=== PATIENT | female | born 1960 | race Caucasian/White ===

== ENCOUNTER 2020-01-05 05:49 | Inpatient (IN) | payer OTHER ==
[2020-01-05] VITALS (19 sets, daily range): BP systolic 110–146; BP diastolic 60–81
[~2020-01-05] VITALS: Ht 157.5 cm; Wt 91.7 kg
[2020-01-05] MEDS ORDERED: LYRICA150 MG PO (06:03)
[2020-01-05] MEDS ORDERED: PHENERGAN 25 MG25 MG PO (06:04)
[2020-01-05] MEDS ORDERED: HYDROCHLOROTHIA25 M2 PO (06:05)
[2020-01-05] MEDS ORDERED: LEVO-T50 MCG PO (06:05)
[2020-01-05] MEDS ORDERED: METFORMIN HCL500 M3 PO (06:05)
[2020-01-05] MEDS ORDERED: DULOXETINE HCL60 MG PO (06:06)
[2020-01-05 06:15] LABS: ABSOLUTE BASOPHILS 0.1 thou/uL (0.0-0.2); ABSOLUTE EOSINOPHILS 0.2 thou/uL (0.0-0.7); ABSOLUTE LYMPHOCYTES 2.2 thou/uL (0.8-5.3); ABSOLUTE MONOCYTES 0.5 thou/uL (0.0-1.2); ABSOLUTE NEUTROPHILS 2.7 thou/uL (1.6-8.1); BASOPHILS 2.1 %; HEMATOCRIT 41.8 % (37.0-47.0); HEMOGLOBIN 15.1 gm/dL (12.0-15.0); LYMPHOCYTES 39.1 %; MCH 32.6 pg (26.0-34.0); MCV 90.4 fL (80.0-100.0); MONOCYTES 8.2 %; MPV 9.2 fl. (7.2-11.1); NUCLEATED RBCS 0 /100WBC; PLATELET COUNT* 206 thou/uL (150-400); POLYS 46.6 %; RBC 4.63 mil/uL (4.20-5.00); RDW-CV 13.4 % (10.5-14.5); WBC 5.7 thou/uL (4.0-11.0)
[2020-01-05 06:21] LABS: CALCIUM 8.1 mg/dL (8.5-10.1); CREATININE 0.9 mg/dL (0.6-1.3)
[2020-01-05 06:24] LABS: POTASSIUM 2.9 mmol/L (3.5-5.1)
[2020-01-05 06:34] LABS: ALBUMIN 3.4 g/dL (3.4-5.0); MAGNESIUM 1.8 mg/dL (1.8-2.4); PROTIME 10.4 Seconds (9.20-11.50); TOTAL BILIRUBIN 0.5 mg/dL (<0.1-1.0); TOTAL PROTEIN 6.9 g/dL (6.4-8.2)
[2020-01-05 08:10] LABS: URINE BILIRUBIN NEGATIVE (Negative); URINE BLOOD NEGATIVE (Negative); URINE CLARITY CLEAR; URINE COLOR YELLOW; URINE GLUCOSE-RANDOM NEGATIVE (Negative); URINE KETONES NEGATIVE (Negative); URINE LEUKOCYTES-REFLEX NEGATIVE (Negative); URINE NITRITE-REFLEX NEGATIVE (Negative); URINE PROTEIN NEGATIVE (Negative); URINE SPECIFIC GRAVITY >= 1.030 (1.005-1.030); URINE UROBILINOGEN 0.2 E.U./dl (0.2-1.0)
[2020-01-05 10:06] LABS: CHOLESTEROL 267 mg/dL (<200)
[2020-01-05 10:25] LABS: HDL CHOLESTEROL 42 mg/dL (>40); LDL CHOLESTEROL 194 mg/dL (<100); TC:HDL 6.4 Ratio (Not establshd); TRIGLYCERIDE 159 mg/dL (<150); VLDL 32 mg/dL (<40)
[2020-01-05 10:28] LABS: SERUM ASSESSMENT Clear
--- NOTE | 2020-01-05 10:46 | NUR ---
COMMUNICATION NOTE: FOLLOW UP CALL WITH ROSE MARINO NP, REPORTED PT IS STATING HER CHEST PAIN/TIGHTNESS IS REDUCED TO A 1 OF 10, UNDERSTANDING VERBALIZED
--- NOTE | 2020-01-05 13:18 | EKG ---
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 : 1960 Requested By: Bridget Santos Order Number: [id number] MD: Graham Melgar Measurements Intervals [place] Rate: 67 P: 6 PA: 179 QRS: -34 QRSD: 82 T: 29 QT: 491 QTc: 519 Interpretive Statements Sinus rhythm Inferior infarct, old Consider anterior infarct Prolonged QT interval No previous ECG available for comparison Electronically Signed On 01-05-2020 13:18:27 CDT by Graham Melgar [email or web address] <ELECTRONICALLY SIGNED> By: Graham Melgar MD, [facility] 01/05/20 1318 0555 0555 Graham Melgar MD, [facility] /EPI
--- NOTE | 2020-01-05 16:16 | 2DMMODE ---
[place] [address] 2 D/M-MODE ECHOCARDIOGRAM Name: LUCIANA RICHMOND Room: [address] ADM IN M.R.#: [id number] Admission: 01/05/20 Attend Phys: Graham Mlegar, Discharge: Date of : 60 Date of Service: 01/05/20 1615 Report #: [id number] THIS REPORT FOR: cc: Physician not on staff Physician not on staff Graham Melgar MD [facility] ~ APPROVED REPORT Study performed: 01/05/2020 13:52:57 EXAM: Comprehensive 2D, Doppler, and color-flow Echocardiogram Patient Location: In-Patient Status: routine BSA: 1.88 HR: 70 bpm BP: 109/63 mmHg Rhythm: NSR Other Information Study Quality: Good Indications Murmur 2D Dimensions IVSd: 11.10 (7-11mm) LVOT Diam: 21.85 (18-24mm) LVDd: 42.31 mm PWd: 9.79 (7-11mm) Ascending Ao: 31.52 (22-36mm) LVDs: 24.94 (25-40mm) Aortic Root: 29.84 mm Volumes Left Atrial Volume (Systole) LA ESV Index: 17.00 mL/m2 Aortic Valve AoV Peak Shane.: 1.43 m/s AO Peak Gr.: 8.18 mmHg LVOT Max P.50 mmHg AO Mean Gr.: 4.58 mmHg LVOT Mean P.27 mmHg LVOT Max V: 1.37 m/s AO V2 VTI: 27.16 cm LVOT Mean V: 0.81 m/s JR (VTI): 3.84 cm2 LVOT V1 VTI: 27.79 [place] [address] 2 D/M-MODE ECHOCARDIOGRAM Name: LUCIANA RICHMOND Room: [address] IN M.R.#: [id number] Admission: 01/05/20 Attend Phys: Graham Melgar, Discharge: Date of : 60 Date of Service: 01/05/20 1615 Report #: [id number] Mitral Valve E/A Ratio: 0.87 MV Decel. Time: 219.63 ms MV E Max Shane.: 0.80 m/s MV PHT: 63.69 ms MVA (PHT): 3.45 cm2 TDI E/Lateral E': 11.43 E/Medial E': 11.43 Medial E' Shane.: 0.07 m/s Lateral E' Shane.: 0.07 m/s Pulmonary Valve PV Peak Shane.: 1.03 m/s PV Peak Gr.: 4.25 mmHg Left Ventricle The left ventricle is normal size. There is normal LV segmental wall motion. There is normal left ventricular wall thickness. Left ventricular systolic function is normal. LVEF is 55-60%. Transmitral Doppler flow pattern suggests impaired LV relaxation. Right Ventricle The right ventricle is normal size. The right ventricular systolic function is normal. Atria The left atrium size is normal. The right atrium size is normal. Aortic Valve The aortic valve is normal in structure. No aortic regurgitation is present. There is no aortic valvular stenosis. Mitral Valve The mitral valve is normal in structure. Trace mitral regurgitation. No evidence of mitral valve stenosis. Tricuspid Valve The tricuspid valve is normal in structure. Trace tricuspid regurgitation. Unable to assess PA pressure. Pulmonic Valve The pulmonary valve is normal in structure. There is no pulmonic valvular regurgitation[place] [address] 2 D/M-MODE ECHOCARDIOGRAM Name: LUCIANA RICHMOND Room: [address] IN .R.#: [id number] Admission: 01/05/20 Attend Phys: Graham Melgar, Discharge: Date of : 60 Date of Service: 01/05/20 1615 Report #: [id number] The aortic root is normal in size. IVC is normal in size and collapses >50% with inspiration. Pericardium There is no pericardial effusion. <Conclusion> The left ventricle is normal size. There is normal left ventricular wall thickness. Left ventricular systolic function is normal. LVEF is 55-60%. Transmitral Doppler flow pattern suggests impaired LV relaxation. Trace mitral regurgitation. Trace tricuspid regurgitation. IVC is normal in size and collapses >50% with inspiration. <ELECTRONICALLY SIGNED> By: Graham Melgar MD, FACC 01/05/20 1615 1615 1615 Graham Melgar MD, FACC /INF
--- NOTE | 2020-01-05 18:49 | NUR ---
PT ARRIVED ON THE UNIT AROUND 1450 POST CATH. A&OX4, SR W/ PVCS ON TELE, ROOM AIR, IMMOBILIZED UNTIL 172, STAND BY ASSIST TO BATHROOM, MINOR SANGUINEOUS DRAINAGE, DRESSING CHANGED, ADMISSION COMPLETED, HOURLY ROUNDING PERFORMED, POSSESSIONS AND CALL LIGHT WITHIN REACH
[2020-01-06] VITALS: BP 134/86
[2020-01-06 04:00] VITALS: BP 138/95
[2020-01-06 05:11] LABS: CALCIUM 7.9 mg/dL (8.5-10.1); CREATININE 0.9 mg/dL (0.6-1.3); POTASSIUM 3.7 mmol/L (3.5-5.1)
[2020-01-06 05:19] LABS: ABSOLUTE BASOPHILS 0.1 thou/uL (0.0-0.2); ABSOLUTE EOSINOPHILS 0.3 thou/uL (0.0-0.7); ABSOLUTE LYMPHOCYTES 2.4 thou/uL (0.8-5.3); ABSOLUTE MONOCYTES 0.5 thou/uL (0.0-1.2); ABSOLUTE NEUTROPHILS 2.9 thou/uL (1.6-8.1); BASOPHILS 1.2 %; EOSINOPHILS 4.6 %; HEMATOCRIT 43.6 % (37.0-47.0); HEMOGLOBIN 15.4 gm/dL (12.0-15.0); LYMPHOCYTES 38.7 %; MCH 32.2 pg (26.0-34.0); MCHC 35.3 g/dL (28.0-37.0); MCV 91.3 fL (80.0-100.0); MONOCYTES 8.8 %; MPV 9.7 fl. (7.2-11.1); NUCLEATED RBCS 0 /100WBC; PLATELET COUNT* 206 thou/uL (150-400); POLYS 46.7 %; RBC 4.78 mil/uL (4.20-5.00); RDW-CV 13.8 % (10.5-14.5); WBC 6.2 thou/uL (4.0-11.0)
--- NOTE | 2020-01-06 05:53 | NUR ---
PATIENT PROGRESSING TOWARDS GOALS: PATIENT DENIES CHEST PAIN AND DISCOMFORT. PATIENT REMAINS ON ROOM AIR. RIGHT GROIN SITE DRESSING REMAINS C/D/I. SLIGHT BRUISING NOTED ON AROUND THE BORDERS OF THE DRESSING, HOWEVER, SITE SOFT. PATIENT UP INDEPENDENTLY WITHOUT DIZZINESS OR LIGHTHEADEDNESS. CALL LIGHT WITHIN REACH
[2020-01-06 08:00] VITALS: BP 135/81
--- NOTE | 2020-01-06 08:45 | NUR ---
CM COMPELETED INITIAL ASSESSMENT TO DISCUSS D/C PLANNING. PT IS DROVE FROM [place] ALONE TO VISIT W/FRIENDS FOR A FEW MORE WEEKS. PT DENIES HX W/HH OR SNF. PT HAS NO DMES. PT IS INDEPENDENT WITH ADLS AND IS ACTIVE. CM DOES NOT ANTICIPATE ANY NEEDS. CM TO CONT TO FOLLOW.
--- NOTE | 2020-01-06 11:00 | EKG ---
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: IGNACIO : 1960 Requested By: Carlin Fernández Order Number: [id number] MD: Carlin Fernández Measurements Intervals [place] Rate: 62 P: 10 UT: 189 QRS: -34 QRSD: 74 T: 42 QT: 458 QTc: 466 Interpretive Statements Sinus rhythm Inferior infarct, old Probable anteroseptal infarct, old Compared to ECG 01/05/2020 05:55:16 Myocardial infarct finding still present Electronically Signed On 01-06-2020 11:00:12 CDT by Carlin Fernández [email or web address] <ELECTRONICALLY SIGNED> By: Carlin Fernández MD, FACC 01/06/20 1100 5 Carlin Fernández MD, [facility] /EPI
[2020-01-06 12:20] VITALS: BP 136/91
--- NOTE | 2020-01-06 12:47 | NUR ---
Per , anticipate dc tomorrow.
--- NOTE | 2020-01-06 15:47 | NUR ---
VS CHARTED, SR ON TELE, ROOM AIR, ACCUCHECK, UP AD NOLAN, HOURLY ROUNDING COMPLETE, POSSESSIONS AND CALL LIGHT WITHIN REACH
--- NOTE | 2020-01-06 15:55 | CARD ---
[address] [address] CARDIAC CATH REPORT Name: LUCIANA RICHMOND Room: [address] ADM IN M.R.#: [id number] Admission: 01/05/20 Attend Phys: Graham Melgar MD Discharge: Date of : 60 Report #: [id number] THIS REPORT FOR: //name// cc: Physician not on staff Physician not on staff ~ ADDENDUM APPROVED REPORT Study performed: 01/05/2020 10:39:50 Patient Details Patient Status: ED Room #: The patient is a 59 year-old female Event Personnel Graham Melgar Eyeglass Fitter, Carlin Fernández Lodging Facilities Attendant, Anselmo Park RN Supervisor Slate Splitting, Justin Huerta RTR Scrub, Brie Rodriguez RTR Monitor Procedures Performed Art Access - R femoral artery, Left Heart Cath w/or w/o Coronaries LHC, NATHAN Place w/wo Plasty Single LAD , Hemostasis w/ Angioseal Indication Abnormal ECG, Unstable angina , Chest pain Risk Factors Arterial Hypertension, Hypercholesterolemia Admission/Lab Medications/Medications given during procedure Glycoprotein IllbIlla Inhibitors, Heparin Unfract., Heparin IV bolus 7000 units, Zofran (Ondansetron) IV 4 mg, Aggrastat IV bolus 8.7 ml, Plavix PO 600 mg Procedure Narrative The patient was brought urgently to the Cardiac Catheterization Laboratory and was prepped and draped in a sterile manner. The right femoral was infiltrated with 2% Lidocaine subcutaneous anesthesia. A 6F Ashby sheath was inserted into the right femoral artery. Coronary angiography was performed using coronary diagnostic catheters. The right coronary system was accessed and visualized with a 6F JR4 catheter. The left coronary system was accessed and visualized with a 6F JL4 catheter. The left ventricle was accessed and visualized with a 6F Pigtail catheter. Left ventricular/[place] [address] CARDIAC CATH REPORT Name: LUCIANA RICHMOND Room: [address] IN ..#: [id number] Admission: 01/05/20 Attend Phys: Graham Melgar MD Discharge: Date of : 60 Report #: [id number] Valve gradient assessed via catheter pullback. Left ventriculogram was performed in ALARCON projection. Closure device was deployed with a 6 Fr Angioseal STS. The patient tolerated the procedure well and there were no complications associated with the procedure. There was no hematoma. Intraoperative Conscious Sedation Sedation start time: 11:51 Case end Time: 12:30 Fentanyl 25 mcg Versed 1 mg Fluoro Time: 5.8 minutes Dose: DAP 76529 cGycm2 1015 mGy Contrast Type and Amount: Visipaque 160 ml Coronary Angiography The patient's coronary anatomy is left dominant. Diagnostic Cath Left Main The left main coronary artery is short and bifurcates into a left anterior descending and circumflex coronary artery. LAD The left anterior descending coronary artery has a 99% mid vessel stenosis. Distally there is moderate nonocclusive plaquing noted. Diagonal 1 A small first diagonal is mildly plaqued. Diagonal 2 A moderate second sized diagonal is mildly plaqued. Circumflex The circumflex coronary artery appears normal in its proximal mid and distal portion. OM1 A very small first obtuse marginal branch has a 50% ostial narrowing. OM2 A large branch second obtuse marginal is free of significant disease. L PDA The circumflex posterior lateral branches are normal. L SMITA A circumflex PDA appears normal. Right Coronary The nondominant right coronary artery is normal in its proximal mid and distal portion. Left Ventriculography The left ventricle is normal in size with normal contractility. The left ventricular ejection fraction is estimated to be 60-65%. Left ventricular wall motion abnormalities are not present. Hemodynamics The aortic pressure is 126/68 mmHg with a mean of [place] [address] CARDIAC CATH REPORT Name: LUCIANA RICHMOND Room: [address] IN [facility].#: [id number] Admission: 01/05/20 Attend Phys: Graham Melgar MD Discharge: Date of : 60 Report #: [id number] ventricular pressure is 126/3 mmHg with a mean of mmHg. The left ventricular end diastolic pressure is 16 mmHg. PCI Technique Lesion Anticoagulation was achieved with Heparin. Aggrastat 8.7 IV bolus Percutaneous coronary intervention was performed on the mid left anterior descending artery segment. The lesion stenosis prior to intervention was 99% with AURE 3 flow. A 6F XB LAD 3.5 Guide Catheter was used to engage the lm ostium. A BMW 190cm Interventional Guidewire was used to cross the lesion. BALLOON DILATION A Balloon catheter Trek RX 3.0 X 8 was inserted and inflated up to 12.00atm for 10seconds. Repeat angiography revealed the following post-dilatation results: 40% stenosis. STENT DEPLOYMENT A drug-eluting stent [place] RX Stent 3.5X12mm was inserted and inflated up to 13.00atm for 13seconds. Repeat angiography revealed the following post-stent deployment results: 0% stenosis. Additional Inflation: 15.00atm for 14seconds. Final angiography reveals 0 % stenosis with AURE 3 flow. Conclusion 1. normal LV function 2. 99% stenosis of the mid LAD 3. successful placement of a drug eluting stent in the lad Recommendations Smoking Cessation Cardiac Rehabilitation Referral Medications Administered Clopidogrel Diagnostic Cath Approved by: Graham Melgar MD Date/Time: 01/05/2020 17:14:56 <ELECTRONICALLY SIGNED> By: Carlin Fernández MD, [facility] 01/06/20 1554 1554 1554Dartur Fernández MD, FAC /INF
[2020-01-06 17:31] VITALS: BP 139/77
[2020-01-06 20:00] VITALS: BP 130/73
[2020-01-07] VITALS: BP 117/61
[2020-01-07 04:00] VITALS: BP 123/64
--- NOTE | 2020-01-07 04:54 | NUR ---
ASSUMED PT CARE AT APPROX 1930. PT IS AWAKE AND ORIENTED X4. PT IS TRACING SR/SB ON THE BARREL RIFLER BUTTON. PT DENIES CHEST PAIN/DISCOMFORT. NO ACUTE CHANGES THROUGHOUT THIS SHIFT. CALL LIGHT WITHIN REACH. HOURLY ROUNDING DONE FOR PT SAFETY.
[2020-01-07 07:30] VITALS: BP 141/83
[2020-01-07] MEDS ORDERED: PLAVIX 75 MG TA75 M1 PO (11:08)
[2020-01-07] MEDS ORDERED: TOPROL XL25 MG PO (11:08)
[2020-01-07] MEDS ORDERED: LIPITOR 40 MG T40 M1 PO (11:08)
[2020-01-07] MEDS ORDERED: ASPIR 8181 MG PO (11:08)
[2020-01-07 12:02] VITALS: BP 103/65
== END 2020-01-07 15:00 | disposition home or self-care (01) | DRG 246 ==
LOC: M.ERS 05:49 → M.TBA-ER 07:10 → M.2W 12:11 → M.TBA-ER 12:11 → M.2W 15:00
PROVIDERS: Emergency Medicine; Internal Medicine; Registered Nurse; ADMIT Internal Medicine Cardiovascular Disease; ATTEND Internal Medicine Cardiovascular Disease
DX: I25.110 Atherosclerotic heart disease of native coronary artery with unstable angina pectoris (principal); I50.33 Acute on chronic diastolic (congestive) heart failure; E11.9 Type 2 diabetes mellitus without complications; I11.0 Hypertensive heart disease with heart failure; Z20.828 Contact with and (suspected) exposure to other viral communicable diseases; E03.9 Hypothyroidism, unspecified; E87.6 Hypokalemia; M79.7 Fibromyalgia; Z82.49 Family history of ischemic heart disease and other diseases of the circulatory system; Z86.73 Personal history of transient ischemic attack (TIA), and cerebral infarction without residual deficits; Z79.82 Long term (current) use of aspirin; Z79.899 Other long term (current) drug therapy